=== PATIENT | male | born 1940 | race Caucasian/White ===

== ENCOUNTER 2023-09-22 03:49 | Inpatient (IN) | payer OTHER ==
[2023-09-22] VITALS (8 sets, daily range): BP systolic 116–171; BP diastolic 71–91; PULSE 54–69; RESP 16–20; O2SAT 94–98
[~2023-09-22] VITALS: Ht 177.8 cm; Wt 67.2 kg
[2023-09-22 04:22] LABS: BASOPHILS # (AUTO) 0.03 K/uL (0.00-0.20); BASOPHILS % (AUTO) 0.5 % (0.0-5.0); EOSINOPHILS # (AUTO) 0.08 K/uL (0.00-0.70); EOSINOPHILS % (AUTO) 1.3 % (0.0-8.0); HEMATOCRIT 42.4 % (42-54); IMMATURE GRANULOCYTE ABSOLUTE 0.03 K/uL (0-1); LYMPHOCYTES # (AUTO) 1.3 K/uL (1.0-4.8); LYMPHOCYTES % (AUTO) 21.7 % (21.0-51.0); MEAN CORPUSCULAR HGB CONC 33.5 g/dL (32.0-36.0); MEAN CORPUSCULAR VOLUME 101.4 fL (79-99); MONOCYTES # (AUTO) 0.7 K/uL (0.1-1.0); MONOCYTES % (AUTO) 11.3 % (3.0-13.0); NEUTROPHILS % (AUTO) 64.7 % (40.0-77.0); PLATELET COUNT (AUTO) 269 K/uL (130-400); RED BLOOD CELL COUNT(AUTO) 4.18 MIL/uL (4.50-6.20); RED CELL DISTRIBUTION WIDTH 12.4 % (11.0-15.5); WHITE BLOOD COUNT (AUTO) 6.2 K/uL (4.8-10.8)
[2023-09-22 04:30] LABS: CREATININE 0.8 mg/dL (0.5-1.5); POTASSIUM 3.8 mmol/L (3.5-5.1)
[2023-09-22 04:37] LABS: ALBUMIN 3.4 g/dL (3.5-5.0); BILIRUBIN,TOTAL 2.2 mg/dL (0.2-1.0); TOTAL PROTEIN, SERUM 6.9 g/dL (6.0-8.3)
[2023-09-22] MEDS ORDERED: LACTULOSE 20 GM/30 ML UDCUP PO PRN (09:30)
[2023-09-22] MEDS ORDERED: ACETAMINOPHEN 325 MG TAB PO PRN (09:30)
[2023-09-22] MEDS ORDERED: NITROGLYCERIN 0.4 MG SL TAB SL PRN (09:30)
[2023-09-22] MEDS ORDERED: ACETAMINOPHEN WITH CODEINE 1 TAB TAB PO PRN (09:30)
[2023-09-22] MEDS ORDERED: DIPHENHYDRAMINE HCL 25 MG CAPSULE PO PRN (09:30)
[2023-09-22] MEDS ORDERED: MAG/ALUM/SIMETH 30 ML UDCUP PO PRN (09:30)
[2023-09-22] MEDS ORDERED: GUAIFENESIN-DM 200/20 MG 10 ML PO PRN (09:30)
[2023-09-22] MEDS ORDERED: AEC81 PO (16:12)
[2023-09-22] MEDS ORDERED: NIFE-40 PO (16:12)
[2023-09-22] MEDS ORDERED: LORA-192 PO (17:29)
[2023-09-22] MEDS ORDERED: LORAZEPAM 1 MG TABLET PO PRN (17:30)
[2023-09-22] MEDS ORDERED: LATA2.5D14 OP (17:35)
[2023-09-22] MEDS ORDERED: BRIN15DR4 OP (17:35)
[2023-09-22] MEDS: FAMOTIDINE 20MG VIAL IV SCH ×2 (20:58→21:00)
[2023-09-22] MEDS: BRINZOLAMIDE 1% 10ML DROPS.SUSP OP SCH (20:59)
[2023-09-22] MEDS: LATANOPROST 2.5 ML DROPS OP SCH ×2 (21:00→21:50)
[2023-09-23] VITALS (13 sets, daily range): BP systolic 122–155; BP diastolic 65–87; PULSE 48–73; RESP 18–22; O2SAT 94–95
[2023-09-23] MEDS: ONDANSETRON 4MG INJ IV PRN ×2 (05:07→19:46)
[2023-09-23 05:43] LABS: BASOPHILS # (AUTO) 0.03 K/uL (0.00-0.20); BASOPHILS % (AUTO) 0.5 % (0.0-5.0); EOSINOPHILS # (AUTO) 0.07 K/uL (0.00-0.70); EOSINOPHILS % (AUTO) 1.1 % (0.0-8.0); HEMATOCRIT 41.9 % (42-54); IMMATURE GRANULOCYTE ABSOLUTE 0.02 K/uL (0-1); LYMPHOCYTES # (AUTO) 1.4 K/uL (1.0-4.8); LYMPHOCYTES % (AUTO) 22.2 % (21.0-51.0); MEAN CORPUSCULAR HEMOGLOBIN 33.5 pg (27.0-33.0); MEAN CORPUSCULAR HGB CONC 32.9 g/dL (32.0-36.0); MEAN CORPUSCULAR VOLUME 101.7 fL (79-99); MONOCYTES # (AUTO) 0.9 K/uL (0.1-1.0); MONOCYTES % (AUTO) 13.8 % (3.0-13.0); NEUTROPHILS # (AUTO) 3.9 K/uL (1.8-7.7); NEUTROPHILS % (AUTO) 62.1 % (40.0-77.0); PLATELET COUNT (AUTO) 249 K/uL (130-400); RED BLOOD CELL COUNT(AUTO) 4.12 MIL/uL (4.50-6.20); RED CELL DISTRIBUTION WIDTH 12.3 % (11.0-15.5); WHITE BLOOD COUNT (AUTO) 6.2 K/uL (4.8-10.8)
[2023-09-23 05:56] LABS: INR 0.94 (0.85-1.15)
[2023-09-23 05:57] LABS: PARTIAL THROMBOPLASTIN TIME 26.2 SEC (26.3-35.5)
[2023-09-23 06:01] LABS: ALBUMIN 3.1 g/dL (3.5-5.0); BILIRUBIN,TOTAL 2.1 mg/dL (0.2-1.0); CREATININE 0.8 mg/dL (0.5-1.5); MAGNESIUM 1.9 mg/dL (1.80-2.40); POTASSIUM 4.1 mmol/L (3.5-5.1); TOTAL PROTEIN, SERUM 6.5 g/dL (6.0-8.3)
[2023-09-23] MEDS: FAMOTIDINE 20MG VIAL IV SCH ×2 (07:49→21:00)
[2023-09-23] MEDS: ASPIRIN 81 MG EC TAB PO SCH (07:50)
[2023-09-23] MEDS: NIFEDIPINE ER 30 MG TAB PO SCH (07:50)
[2023-09-23] MEDS: BRINZOLAMIDE 1% 10ML DROPS.SUSP OP SCH ×2 (08:11→19:49)
[2023-09-23] MEDS ORDERED: POTASSIUM CHLORIDE 10% ELIXIR 20 MEQ/15 ML UDCUP PO PRN (09:00)
[2023-09-23] MEDS ORDERED: KCL 20 MEQ ERTAB PO PRN (09:00)
[2023-09-23] MEDS ORDERED: MAGNESIUM 2GM PREMIX 50ML 50 ML IV PRN (09:00)
[2023-09-23] MEDS ORDERED: POTASSIUM CHLORIDE 10MEQ/100ML 100 ML IV PRN (09:00)
[2023-09-24] VITALS (7 sets, daily range): BP systolic 99–136; BP diastolic 68–89; PULSE 53–90; RESP 18–22; O2SAT 94
[2023-09-24 05:08] LABS: MEAN CORPUSCULAR HEMOGLOBIN 33.3 pg (27.0-33.0); MEAN CORPUSCULAR HGB CONC 32.9 g/dL (32.0-36.0); MEAN CORPUSCULAR VOLUME 101.4 fL (79-99); RED BLOOD CELL COUNT(AUTO) 4.14 MIL/uL (4.50-6.20); RED CELL DISTRIBUTION WIDTH 12.2 % (11.0-15.5); WHITE BLOOD COUNT (AUTO) 5.9 K/uL (4.8-10.8)
[2023-09-24 05:25] LABS: ALBUMIN 3.1 g/dL (3.5-5.0); BILIRUBIN,TOTAL 1.4 mg/dL (0.2-1.0); CREATININE 0.9 mg/dL (0.5-1.5); TOTAL PROTEIN, SERUM 6.8 g/dL (6.0-8.3)
[2023-09-24] MEDS: BRINZOLAMIDE 1% 10ML DROPS.SUSP OP SCH (09:00)
[2023-09-24] MEDS: FAMOTIDINE 20MG VIAL IV SCH ×2 (09:00→09:19)
[2023-09-24] MEDS: NIFEDIPINE ER 30 MG TAB PO SCH (09:19)
[2023-09-24] MEDS: ASPIRIN 81 MG EC TAB PO SCH (09:20)
== END 2023-09-24 13:00 | disposition home or self-care (01) | DRG 309 ==
LOC: EDH 03:49 → EDHIP 09:19 → 2AH 15:44
PROVIDERS: ADMIT Hospitalist; ATTEND Hospitalist
DX: R00.1 Bradycardia, unspecified (principal); E44.0 Moderate protein-calorie malnutrition; I10 Essential (primary) hypertension; Z85.038 Personal history of other malignant neoplasm of large intestine; Z68.21 Body mass index [BMI] 21.0-21.9, adult
CPT/HCPCS: 36415; 70450; 71045; 80053; 82550; 83735; 84443; 84484; 85025; 85027; 85610; 85730; 93005; 93306; 93880; G0378; J2405; J3475; J3490